=== PATIENT | female | born 1980 | race Caucasian/White ===

== ENCOUNTER 2022-04-09 21:12 | Emergency (ER) | payer MEDICAID ==
[~2022-04-09] VITALS: Ht 154.9 cm; Wt 72.6 kg
[2022-04-09 21:55] VITALS: BP_SYST 163
--- NOTE | 2022-04-09 22:26 | NUR ---
First contact with the pt. preseents mart c/o neck pain and spasms. The pt is also c/o vision changes in R eye since this AM. Also c/o intermmmittent DECKER, numbness around L hands. States symptoms began 0500 04/09/2022. Denies other symptoms at this time. Notified MD of the pt's complaint.
[2022-04-09] MEDS ORDERED: KETOROLAC TROMETHAMINE 60 MG/2 ML VIAL IM ONE (23:00)
[2022-04-09 23:40] LABS: BASOPHILS # (AUTO) 0.1 K/uL (0.0-0.2); BASOPHILS % (AUTO) 0.5 % (0.0-2.0); EOSINOPHILS # (AUTO) 0.2 K/uL (0.0-0.4); EOSINOPHILS % (AUTO) 1.5 % (0.0-4.0); HEMATOCRIT 37.7 % (36-48); HEMOGLOBIN 12.9 g/dL (12.0-16.0); LYMPHOCYTES # (AUTO) 3.3 K/uL (1.0-5.5); LYMPHOCYTES % (AUTO) 30.7 % (20.5-51.5); MEAN CORPUSCULAR HEMOGLOBIN 33 pg (27-31); MEAN CORPUSCULAR HGB CONC 34 % (32-36); MEAN CORPUSCULAR VOLUME 95 fL (79.0-98.0); MONOCYTES # (AUTO) 0.7 K/uL (0.0-1.0); MONOCYTES % (AUTO) 6.2 % (1.7-9.3); NEUTROPHILS # (AUTO) 6.6 K/uL (1.8-7.7); NEUTROPHILS % (AUTO) 61.1 % (40.0-70.0); PLATELET COUNT (AUTO) 459 K/uL (130-430); RED BLOOD CELL COUNT(AUTO) 3.97 MIL/uL (4.2-6.2); RED CELL DISTRIBUTION WIDTH 13.3 % (9.0-15.0); WHITE BLOOD COUNT (AUTO) 10.9 K/uL (4.8-10.8)
[2022-04-09 23:50] LABS: CALCIUM 9.6 mg/dL (8.4-11.0); CREATININE 0.57 mg/dL (0.55-1.30)
[2022-04-10] MEDS ORDERED: NAPR-688 PO (00:10)
[2022-04-10] MEDS ORDERED: TRAM50TA2 PO (00:10)
[2022-04-10 00:26] VITALS: BP_SYST 137
--- NOTE | 2022-04-10 00:28 | NUR ---
Patient given written and verbal discharge instructions and verbalizes understanding. ER MD discussed with patient the results and treatment provided. Patient in stable condition. ID arm band removed. Rx of Naproxen and Tramadol given. Patient educated on pain management and to follow up with PMD. Opportunity for questions provided and answered.
== END 2022-04-10 00:26 | disposition home or self-care (01) ==
LOC: SED 21:12
DX: S13.4XXA Sprain of ligaments of cervical spine, initial encounter (principal); G43.909 Migraine, unspecified, not intractable, without status migrainosus; Z88.2 Allergy status to sulfonamides; Z79.899 Other long term (current) drug therapy; X58.XXXA Exposure to other specified factors, initial encounter; Y93.89 Activity, other specified; Y92.89 Other specified places as the place of occurrence of the external cause; Y99.8 Other external cause status
CPT/HCPCS: 99283; 80048; 85025; 36415; 96372; J1885

== ENCOUNTER 2022-08-21 02:00 | Emergency (ER) | payer MEDICAID ==
[~2022-08-21] VITALS: Ht 152.4 cm; Wt 68.0 kg
[~2022-08-21 02:00] MED LIST: NAPR-688 PO; TRAM50TA2 PO
--- NOTE | 2022-08-21 02:11 | NUR ---
Patient arrived to ED 3 for pain, numbness left wrist. Upper extremity fracture. Patient hit counter out of frustration and hurt wrist and went to ER 2 weeks ago. Patient has appointment set that is 2 weeks with PCP. Patient took one ibuprofen 800 mg PO and still has sharp pains and numbness at fingertips. Patient heard wrist snap when turning left hand and arm when sleeping two nights ago.
[2022-08-21 02:14] VITALS: BP_SYST 167
[2022-08-21] MEDS ORDERED: HYDROcodone/ACETAMIN 5-325 MG TAB (NORCO/ VICODIN) PO ONE (02:45)
[2022-08-21] MEDS ORDERED: HYDR-3917 PO (03:03)
--- NOTE | 2022-08-21 03:17 | NUR ---
Wrist brace applied to patient.
--- NOTE | 2022-08-21 03:18 | NUR ---
Patient given written and verbal discharge instructions and verbalizes understanding. ER MD discussed with patient the results and treatment provided. Patient in stable condition. ID arm band removed. IV catheter removed intact and dressing applied, no active bleeding. Rx of Hydrocodone given. Patient educated on pain management and to follow up with PMD. Pain Scale . Opportunity for questions provided and answered. Medication side effect fact sheet provided.
[2022-08-21 03:19] VITALS: BP_SYST 134
== END 2022-08-21 03:18 | disposition home or self-care (01) ==
LOC: SED 02:00
DX: S63.302A Traumatic rupture of unspecified ligament of left wrist, initial encounter (principal); M25.532 Pain in left wrist; Z88.2 Allergy status to sulfonamides; Z79.899 Other long term (current) drug therapy; W23.0XXA Caught, crushed, jammed, or pinched between moving objects, initial encounter; Y93.89 Activity, other specified; Y92.89 Other specified places as the place of occurrence of the external cause; Y99.8 Other external cause status
CPT/HCPCS: 99283

== ENCOUNTER 2023-10-06 22:49 | Emergency (ER) | payer MEDICAID, OTHER ==
[~2023-10-06] VITALS: Ht 167.6 cm; Wt 90.7 kg
[~2023-10-06 22:49] MED LIST changes: +HYDR-3917 PO
[2023-10-06 22:55] VITALS: BP_SYST 176; PULSE 107; RESP 18; TEMP 99.1; O2SAT 99
[2023-10-06] MEDS: NACL 0.9% 1,000 ML IV ONE (23:22)
[2023-10-06] MEDS: HALOPERIDOL LACTATE 5 MG/ML VIAL IVP ONE (23:24)
[2023-10-06] MEDS: LORazepam 2 MG/ML VIAL IVP ONE (23:25)
[2023-10-06] MEDS: DIPHENHYDRAMINE INJ 50 MG/ML VIAL IVP ONE (23:26)
[2023-10-06 23:32] LABS: BASOPHILS # (AUTO) 0.1 K/uL (0.0-0.2); BASOPHILS % (AUTO) 0.8 % (0.0-2.0); EOSINOPHILS # (AUTO) 0.3 K/uL (0.0-0.4); EOSINOPHILS % (AUTO) 2.8 % (0.0-4.0); HEMATOCRIT 36.5 % (36-48); HEMOGLOBIN 12.5 g/dL (12.0-16.0); LYMPHOCYTES # (AUTO) 3.6 K/uL (1.0-5.5); LYMPHOCYTES % (AUTO) 33.2 % (20.5-51.5); MEAN CORPUSCULAR HEMOGLOBIN 29 pg (27-31); MEAN CORPUSCULAR HGB CONC 34 % (32-36); MEAN CORPUSCULAR VOLUME 86 fL (79.0-98.0); MONOCYTES # (AUTO) 0.6 K/uL (0.0-1.0); MONOCYTES % (AUTO) 5.6 % (1.7-9.3); NEUTROPHILS # (AUTO) 6.2 K/uL (1.8-7.7); NEUTROPHILS % (AUTO) 57.6 % (40.0-70.0); PLATELET COUNT (AUTO) 486 K/uL (130-430); RED BLOOD CELL COUNT(AUTO) 4.25 MIL/uL (4.2-6.2); RED CELL DISTRIBUTION WIDTH 14.7 % (9.0-15.0); WHITE BLOOD COUNT (AUTO) 10.8 K/uL (4.8-10.8)
[2023-10-07 00:05] LABS: ALBUMIN 3.5 g/dL (3.4-4.8); BILIRUBIN,DIRECT 0.1 mg/dL (0.0-0.3); CREATININE 0.83 mg/dL (0.55-1.30); POTASSIUM 3.4 mmol/L (3.5-5.1); TOTAL BILIRUBIN 0.3 mg/dL (0.0-1.0); TOTAL PROTEIN, SERUM 7.5 g/dL (6.4-8.3)
[2023-10-07 05:54] VITALS: BP_SYST 164; PULSE 106; RESP 26; TEMP 99.1; O2SAT 99
[2023-10-07 07:10] LABS: BARBITURATE, URINE NEGATIVE (NEG <=200); BENZODIAZEPINE, URINE POSITIVE (NEG <=150); CANNABINOID, URINE NEGATIVE (NEG <=50); COCAINE, URINE NEGATIVE (NEG <=150); METHAMPHETAMINES SCREEN,URINE POSITIVE (NEG <=500); OPIATE, URINE NEGATIVE (NEG <=100); PHENCYCLIDINE SCREEN,URINE NEGATIVE (NEG <=25); UR TRICYCLIC ANTIDEPRESSANTS NEGATIVE (NEG <=300); URINE AMPHETAMINE POSITIVE (NEG <=500); URINE METHADONE NEGATIVE (NEG <=200); URINE OXYCODONE SCREEN NEGATIVE (NEG <=100)
== END 2023-10-07 05:54 | disposition home or self-care (01) ==
LOC: SED 22:49
DX: R40.4 Transient alteration of awareness (principal); F10.129 Alcohol abuse with intoxication, unspecified; F15.129 Other stimulant abuse with intoxication, unspecified; R03.0 Elevated blood-pressure reading, without diagnosis of hypertension; Z90.49 Acquired absence of other specified parts of digestive tract; Z88.2 Allergy status to sulfonamides; Z79.899 Other long term (current) drug therapy; Y90.9 Presence of alcohol in blood, level not specified
CPT/HCPCS: 99284; 96374; 96375; 96361; 80307; 80076; 80048; 85025; 36415; J1200; J1630; J2060; J7030

== ENCOUNTER 2023-10-30 21:36 | Emergency (ER) | payer OTHER ==
[~2023-10-30] VITALS: Ht 165.1 cm; Wt 90.7 kg
[2023-10-30 21:43] VITALS: BP_SYST 105; PULSE 100; RESP 20; TEMP 98; O2SAT 98
[2023-10-30 22:21] LABS: BARBITURATE, URINE NEGATIVE (NEG <=200); BENZODIAZEPINE, URINE NEGATIVE (NEG <=150); CANNABINOID, URINE NEGATIVE (NEG <=50); COCAINE, URINE NEGATIVE (NEG <=150); METHAMPHETAMINES SCREEN,URINE POSITIVE (NEG <=500); OPIATE, URINE NEGATIVE (NEG <=100); PHENCYCLIDINE SCREEN,URINE NEGATIVE (NEG <=25); UR TRICYCLIC ANTIDEPRESSANTS NEGATIVE (NEG <=300); URINE AMPHETAMINE POSITIVE (NEG <=500); URINE METHADONE NEGATIVE (NEG <=200); URINE OXYCODONE SCREEN NEGATIVE (NEG <=100)
[2023-10-30 23:15] VITALS: BP_SYST 105; PULSE 100; RESP 20; TEMP 98; O2SAT 98
== END 2023-10-30 23:15 | disposition home or self-care (01) ==
LOC: SED 21:36
DX: S00.03XA Contusion of scalp, initial encounter (principal); S00.212A Abrasion of left eyelid and periocular area, initial encounter; S10.81XA Abrasion of other specified part of neck, initial encounter; I10 Essential (primary) hypertension; F41.9 Anxiety disorder, unspecified; Z88.2 Allergy status to sulfonamides; Z79.899 Other long term (current) drug therapy; Y04.0XXA Assault by unarmed brawl or fight, initial encounter; Y93.89 Activity, other specified; Y92.89 Other specified places as the place of occurrence of the external cause; Y99.8 Other external cause status
CPT/HCPCS: 99284; 70450; 80307; 36415; 72125; G0482